=== PATIENT | female | born 1985 | race Caucasian/White ===

== ENCOUNTER 2025-07-15 11:07 | Outpatient (REF) | payer MEDICAID, SELFPAY ==
--- OUTSIDE RECORDS SUMMARY | 2025-07-15 09:40 | XMS_ITS | Encounter Summary ---
Author Organization [employer] Address [address] [facility] [address] [place] [address] Care Team Providers Care Plate Setter Name Role Phone Winnie Sow MD Primary Care Provider +1- [phone] Reason for Referral * Imaging (Routine) - Authorized Specialty Diagnoses / Procedures Referred By Contac t Referred To Contact Radiology Diagnoses Encounter for screening for malignant neoplasm of breast, unspecified screening modality Procedures BI Mammogram Screening Tomosynthesis Bilateral Winnie Sow MD [address] [place] [address] Phone: tel: fax: [facility] Referral ID Status Reason Start Date Expiration Date V isits Requested Visits Authorized [id number] Authorized 07/15/2025 07/15/2026 1 1 Reason for Visit * Reason Comments Abdominal Pain Encounter Details Date Type Department Care Team (Late st Contact Info) Description 07/15/2025 9:40 AM EDT Office Visit [facility] [address] [place] [phone] Winnie Sow MD [address] [place] [phone] Acute vaginitis (Primary Dx); Family planning; [...] 08/15/2025 9:30 AM Winnie Sow MD MEDICINE [facility] documented in this encounter Miscellaneous Notes * Assessment & Plan Note - Winnie Sow MD - 07/15/2025 9:40 AM EDT Associated Problem(s): Other specified health status documented in this encounter Plan of Treatment Upcoming Encounters Date Type Department Care Team (Late st Contact Info) Description 08/15/2025 9:30 AM EDT Office Visit [facility] MED[facility] [address] [place] [phone] Winnie Sow MD [address] [place] [address] Scheduled Orders Name Type Priority Associated Diagnoses Orde r Schedule Urinalysis, Complete, with Reflex to Culture Lab Routine Acute vaginitis Expected: 07/15/2025 (Approximate), Expires: 07/15/2026 Bacterial Vaginosis, Yeast and Trich Microbiology Routine Acute vaginitis Expected: 07/15/2025 (Approximate), Expires: 07/15/2026 Chlamydia/N. Gonorrhoeae RNA, TMA, Vagina Microbiology Routine Acute vaginitis Ordered: 07/15/2025 Hepatitis C Antibody with Reflex to HCV, RNA, Quantitative, Real-Time PCR Lab Routine Routine screening for STI (sexually transmitted infection) Expected: 07/15/2025 (Approximate), Expires: 07/15/2026 HIV-1/2 Antigen and Antibodies, Fourth Generation, with Reflexes Lab Routine Routine screening for STI (sexually transmitted infection) Expected: 07/15/2025 (Approximate), Expires: 07/15/2026 Syphilis Screen Lab Routine Routine screening for STI (sexually transmitted infection) Expected: 07/15/2025 (Approximate), Expires: 07/15/2026 Herpes Simplex Virus 1 and 2 (IgG), Type-Specific Antibodies Lab Routine Acute vaginitis Expected: 07/15/2025 (Approximate), Expires: 07/15/2026 Herpes Simplex Virus Culture with Reflex Typing Microbiology Routine Acute vaginitis Expected: 07/15/2025 (Approximate), Expires: 07/15/2026 Hepatic Function Panel Lab Routine Diabetes mellitus screening Expected: 07/15/2025, Expires: 07/15/2026 Basic Metabolic Panel Lab Routine Diabetes mellitus screening Expected: 07/15/2025, Expires: 07/15/2026 CBC auto differential Lab Routine Screening, anemia, deficiency, iron Expected: 07/15/2025, Expires: 07/15/2026 BI Mammogram Screening Tomosynthesis Bilateral Imaging Routine Encounter for screening for malignant neoplasm of breast, unspecified screening modality Expected: 07/15/2025, Expires: 09/14/2026 documented as of this encounter Procedures Procedure Name Priority Date/Time Associated Diagnosis Comments POCT URINALYSIS DIPSTICK Routine 07/15/2025 10:09 AM EDT Family planning POCT , URINE Routine 07/15/2025 10:05 AM EDT Family planning documented in this encounter Results * (ABNORMAL) POCT urinalysis dipstick manually resulted [...] 113,026 Urine 07/15/2025 10:0 5 AM EDT us Winnie Sow MD POINT OF CARE TEST [...] status documented in this encounter Care Teams Plate Setter Relationship Specialty Start Date End Date Winnie Sow MD [address] [place] [phone] PCP - General Family Medicine 07/15/25 documented as of this encounter
--- OUTSIDE RECORDS SUMMARY | 2025-07-15 12:04 | XMS_ITS | Encounter Summary ---
Author Organization [employer] Address [address] [facility] [address] [place] [address] Care Team Providers Care Magazine Supervisor Name Role Phone Winnie Sow MD Primary Care Provider +1- [phone] Encounter Details Date Type Department Care Team (Latest Contact Info) Description 07/15/2025 Travel Social History Tobacco Use Types Packs/Day Years Used Date Smoking Tobacco: Never Smokeless Tobacco: Never Alcohol Use Standard Drinks/Week Comments Yes 0 (1 standard drink = 0.6 oz pur e alcohol) recreational Comments Unknown Sex and Gender Information Value Date Recorded Sex Assigned at Female 10/30/2024 8:30 AM EST Legal Sex Female 8:29 AM EST Gender Identity Female 10/30/2024 8:30 AM EST Sexual Orientation Straight 10/30/2024 8: 30 AM EST documented as of this encounter Plan of Treatment Upcoming Encounters Date Type Department Care Team (Late st Contact Info) Description 08/15/2025 9:30 AM EDT Office Visit [facility] [address] [place] [address] Winnie Sow MD [address] [place] [address] documented as of this encounter Visit Diagnoses Not on filedocumented in this encounter Care Teams Magazine Supervisor Relationship Specialty Start Date End Date Winnie Sow MD [address] [place] [address] PCP - General Family Medicine 07/15/25 documented as of this encounter
--- OUTSIDE RECORDS SUMMARY | 2025-07-15 12:04 | XMS_ITS | Clinical Summary ---
Author Organization [employer] Address [address] [facility] [address] [place] [address] Care Team Providers Care Chief Wharfinger Name Role Phone Winnie Sow MD Primary Care Provider +1- [phone] Allergies No known active allergies Medications valACYclovir (Valtrex) 1 g tabletIndicati ons:Acute vaginitis Take 1 tablet (1,000 mg) by mouth 2 times daily for 7 days. 14 tablet 07/15/20 25 025 Active fluconazole (Diflucan) 150 MG tabletIndicati ons:Candidiasi s Take 1 tablet (150 mg) by mouth 1 (one) time for 1 dose. 1 tablet 07/15/20 25 025 Active levonorgestrel (Plan B) 1.5 MG tabletIndicati ons:Family planning Take 0.5 tablets (0.75 mg) by mouth every 12 (twelve) hours for 1 day. 1 tablet 07/15/20 25 025 Active levonorgestrel (Plan B) 1.5 MG tabletIndicati ons:Family planning Take 0.5 tablets (0.75 mg) by mouth every 12 (twelve) hours for 1 day. 1 tablet 07/15/20 25 025 Discontinued(Al ternate therapy) fluconazole (Diflucan) 150 MG tabletIndicati ons:Candidiasi s Take 1 tablet (150 mg) by mouth 1 (one) time for 1 dose. 1 tablet 07/15/20 25 025 Discontinued valACYclovir (Valtrex) 1 g tabletIndicati ons:Acute vaginitis Take 1 tablet (1,000 mg) by mouth 2 times daily for 7 days. 14 tablet 07/15/20 25 025 Discontinued Active Problems Problem Noted Date Diagnosed Date Other specified health status 07/15/2025 Overview (07/15/2025): -next comprehensive annual evaluation due after -eye care facilitated by na -dental home is [facility] care proxy Assessment & Plan (07/15/2025 10:56 AM EDT): Encounters Date Type Department Care Team Description 07/15/2025 9:40 AM EDT Office Visit [facility] [address] [place] [address] Winnie Sow MD Acute vaginitis (Primary Dx); Family planning; Routine screening for STI (sexually transmitted infection); Diabetes mellitus screening; Screening, anemia, deficiency, iron; Candidiasis; Encounter for screening for malignant neoplasm of breast, unspecified screening modality; Other specified health status 07/15/2025 Travel 05/05/2025 Telephone [facility] [address] [place] [address] Patrick Torres MD CHW - New Patient Assistance from Last 3 Months Family History Medical History Relation Name Comments Diabetes Maternal Grandfather Heart disease Maternal Grandfather Hypertension Maternal Grandfather Diabetes Mother Cancer Neg Hx Relation Name Status Comments Maternal Grandfather Mother Social History Tobacco Use Types Packs/Day Years [...] Orientation Straight 10/30/2024 8: 30 AM EST Last Filed Vital Signs Vital Sign Reading [...] - - Body Mass Index - - Plan of Treatment Upcoming Encounters Date Type Department Care Team (Late st Contact Info) Description 08/15/2025 9:30 AM EDT Office Visit [facility] [address] [place] [address] Winnie Sow MD [address] [place], [place] [phone] Health Maintenance Due Date Last Done Comments Depression Screening 1984 HIV Screening 1984 SDOH Screening 1984 Disability Screening 1984 Alcohol/Substance Use Screening 1996 Hepatitis C Screening 2002 Pap Smear 2005 Cervical Cancer Screening 2014 HPV/Cotest 2014 DTaP/Tdap/Td Vaccines (8 - Td or Tdap) 01/18/2023 01/18/2013, 11/20/2008, 06/20/1998, Additional history exists COVID-19 Vaccine ( season) 2024 07/13/2021, 06/22/2021 Mammogram 2024 Influenza Vaccine (#1) 2025 , 09/11/2020, 08/25/2020 Family Planning (PISQ) 07/15/2026 07/15/2025 Tobacco Screening 07/15/2026 07/15/2025 Zoster Vaccines (1 of 2) 2034 RSV Patients and Patients Aged 60 years or older (1 - 1-dose 75+ series) 2059 HIB Vaccines Completed 05/21/1987, 10/28/1986 IPV Vaccines Completed 06/04/1990, 0706/1986, 03/11/1985, Additional history exists Hepatitis B Vaccines Completed 12/21/1998, 07/21/1998, 06/20/1998 HPV Vaccines Completed 09/14/2007, 0602/2007, 02/19/2007 Meningococcal Vaccine Aged Out 06/28/2013 No brandon thiago eligible based on patient's age to complete this topic Hepatitis A Vaccines Aged Out No long er eligible based on patient's age to complete this topic Meningococcal B Vaccine Aged Out No l onger eligible based on patient's age to complete this topic Pneumococcal Vaccine: Pediatrics (0 to 5 Years) and At-Risk Patients (6 to 49) Years Aged Out No longer eligible based on patient's age to complete this topic RSV under 20 months Aged Out No longe r eligible based on patient's age to complete this topic Rotavirus Vaccines Aged Out No longer eligible based on patient's age to complete this topic Procedures Procedure Name Priority Date/Time Associated Diagnosis Comments POCT URINALYSIS DIPSTICK Routine 07/15/2025 10:09 AM EDT Family planning POCT , URINE Routine 07/15/2025 10:05 AM EDT Family planning from Last 3 Months Results * (ABNORMAL) POCT urinalysis dipstick manually [...] CARE TEST ENTER/E DIT ORDERABLES Final Result from Last 3 Months Insurance [facility] C3 Care Teams Chief Wharfinger Relationship Specialty Start Date End Date Winnie Sow MD [address] [place] [address] PCP - General Family Medicine 07/15/25
[2025-07-15 13:12] LABS: MANUAL DIFF FLAG NO
[2025-07-15 13:27] LABS: Hematocrit 41.8 % (37.0-47.0); Hemoglobin 14.0 g/dl (12.0-16.0); Imm Gran Abs Auto 0.03 X10*3/uL (0.00-0.03); Imm Gran Pct Auto 0.5 % (0.0-0.4); Lymphocytes Absolute Auto 1.1 X10*3/uL (1.2-4.9); Mean Corpuscular HGB Conc 33.5 g/dl (31.0-35.0); Mean Corpuscular Hemoglobin 30.2 pg (27.0-33.0); Mean Corpuscular Volume 90.3 fL (80.0-98.0); NRBC Abs Auto 0.000 X10*3/uL (0.0-0.012); NRBC Pct Auto 0.0 /100WBC (0.0-0.2); Platelet Count 301 X10*3/uL (160-400); Red Blood Count 4.63 X10*6/uL (4.20-5.50); White Blood Count 6.4 X10*3/uL (4.8-10.8)
[2025-07-15 13:46] LABS: Alanine Aminotransferase 14 U/L (0-31); Albumin Level 4.6 g/dL (3.5-5.0); Alkaline Phosphatase 61 U/L (39-117); Anion Gap 16 (12-20); Aspartate Amino Transferase 23 U/L (5-31); Blood Urea Nitrogen 6 mg/dL (9-16); Calcium 9.3 mg/dL (8.4-10.2); Carbon Dioxide 24 mmol/L (22-29); Chloride 103 mmol/L (96-108); Estimated Glomerular Filt Rate > 60; Potassium 3.7 mmol/L (3.3-5.1); Sodium 139 mmol/L (135-145); Total Protein 8.5 g/dL (6.5-8.0)
[2025-07-15 13:59] LABS: Syphilis Screen Nonreactive (Nonreactive)
[2025-07-15 14:00] LABS: HIV Num 1 0.05 S/CO (0.00-0.99); ~HepC Num1 0.14 S/CO (0.00-0.79); ~Hepatitis C Antibody Nonreactive (Nonreactive)
[2025-07-15 20:53] LABS: Bacterial Vaginosis PCR POSITIVE (Negative); Candida Group PCR NOT DETECTED (Not Detect); Candida glab krusei PCR NOT DETECTED (Not Detect); Trichomonas vaginalis PCR NOT DETECTED (Not Detect)
[2025-07-15 22:26] LABS: CT PCR NOT DETECTED (Not Detect.); NG PCR NOT DETECTED (Not Detect.)
== END 2025-07-15 11:08 | disposition home or self-care (01) ==
LOC: HO.HHCL 11:07
PROVIDERS: PCP Family Medicine; Visit Provider Family Medicine
DX: Z11.3 Encounter for screening for infections with a predominantly sexual mode of transmission (principal); Z13.1 Encounter for screening for diabetes mellitus; Z13.0 Encounter for screening for diseases of the blood and blood-forming organs and certain disorders involving the immune mechanism; Z11.59 Encounter for screening for other viral diseases; Z11.8 Encounter for screening for other infectious and parasitic diseases; Z11.4 Encounter for screening for human immunodeficiency virus [HIV]; N76.0 Acute vaginitis
CPT/HCPCS: 36415; 80048; 80076; 81515; 85025; 86695; 86696; 86780; 86803; 87255; 87389; 87491; 87591

== ENCOUNTER 2025-07-19 14:05 | Outpatient (REF) | payer MEDICAID, SELFPAY ==
--- OUTSIDE RECORDS SUMMARY | 2025-07-15 09:40 | XMS_ITS | Encounter Summary ---
Author Organization [employer] Address [address] [facility] [address], [place] [address] Care Team Providers Care Desk Assistant Name Role Phone Winnie Sow MD Primary Care Provider +1- [phone] Reason for Referral * Imaging (Routine) - Authorized Specialty Diagnoses / Procedures Referred By Contac t Referred To Contact Radiology Diagnoses Encounter for screening for malignant neoplasm of breast, unspecified screening modality Procedures BI Mammogram Screening Tomosynthesis Bilateral Winnie Sow MD [address] [place] [address] Phone: tel: fax: [employer] Referral ID Status Reason Start Date Expiration Date V isits Requested Visits Authorized [id number] Authorized 07/15/2025 07/15/2026 1 1 Reason for Visit * Reason Comments Abdominal Pain Encounter Details Date Type Department Care Team (Late st Contact Info) Description 07/15/2025 9:40 AM EDT Office Visit [facility] [address] [place] [phone] Winnie Sow MD [address] [place] [phone] Acute vaginitis (Primary Dx); Family planning; Routine screening for STI (sexually transmitted infection); Diabetes mellitus screening; Screening, anemia, deficiency, iron; Candidiasis; Encounter for screening for malignant neoplasm of breast, unspecified screening modality; Other specified health status Social History Tobacco Use Types Packs/Day Years Used Date Smoking Tobacco: Never Smokeless Tobacco: Never Tobacco Cessation:Counseling Given: No Alcohol Use Standard Drinks/Week Comments Yes 0 (1 standard drink = 0.6 oz pur e alcohol) recreational Comments Unknown Intention Date Recorded No desire to become (finding) 0 07/15/2025 Sex and Gender Information Value Date Recorded Sex Assigned at Female 10/30/2024 8:30 AM EST Legal Sex Female 8:29 AM EST Gender Identity Female 10/30/2024 8:30 AM EST Sexual Orientation Straight 10/30/2024 8: 30 AM EST documented as of this encounter Last Filed Vital Signs Vital Sign Reading Time Taken Comments Blood Pressure 124/80 07/15/2025 9:21 AM EDT Pulse 98 07/15/2025 9:21 AM EDT Temperature 37.2 C (98.9 F) 07/15/2025 9:21 AM EDT Respiratory Rate 20 07/15/2025 9:21 AM EDT Oxygen Saturation 98% 07/15/2025 9:21 AM EDT Inhaled Oxygen Concentration - - Weight 65 kg (143 lb 3.2 oz) 07/15/2025 9:21 AM EDT Height - - Body Mass Index - - documented in this encounter Progress Notes * Winnie Sow MD - 07/15/2025 9:40 AM EDT Images from the original note were not included. Subjective Patient ID: Elicia Oh is a 39 y.o. female who presents to walk in clinic for vaginal pain. Vaginal pain for three days, worse with urination. No pelvic pain. 1 male partner. + discharge, previous some odor but not currently. Abdominal Pain Review of Systems Gastrointestinal: Positive for abdominal pain. Objective Visit Vitals BP 124/80 (BP Location: Left arm, Patient Position: Sitting, BP Cuff Size: Adult) Pulse 98 Temp 98.9 ??F (37.2 ??C) (Oral) Resp 20 There is no height or weight on file to calculate BMI. Physical Exam Genitourinary: Comments: Mild erythema, pin point area of erythema that is tender with application of swab at pt'sright lower introitus. Assessment & Plan Acute vaginitis Suspect candidiasis. Rx diflucan. Will treat presumptively for HSV given localized area of tenderness to be cautious. Orders: Urinalysis, Complete, with Reflex to Culture; Future Bacterial Vaginosis, Yeast and Trich; Future Chlamydia/N. Gonorrhoeae RNA, TMA, Vagina Herpes Simplex Virus 1 and 2 (IgG), Type-Specific Antibodies; Future Herpes Simplex Virus Culture with Reflex Typing; Future valACYclovir (Valtrex) 1 g tablet; Take 1 tablet (1,000 mg) by mouth 2 times daily for 7 days. Family planning Orders: POCT urinalysis dipstick manually resulted POCT , urine manually resulted levonorgestrel (Plan B) 1.5 MG tablet; Take 0.5 tablets (0.75 mg) by mouth every 12 (twelve) hours for 1 day. Routine screening for STI (sexually transmitted infection) Orders: Hepatitis C Antibody with Reflex to HCV, RNA, Quantitative, Real-Time PCR; Future HIV-1/2 Antigen and Antibodies, Fourth Generation, with Reflexes; Future Syphilis Screen; Future Diabetes mellitus screening Orders: Hepatic Function Panel; Future Basic Metabolic Panel; Future Screening, anemia, deficiency, iron Orders: CBC auto differential; Future Candidiasis Orders: fluconazole (Diflucan) 150 MG tablet; Take 1 tablet (150 mg) by mouth 1 (one) time for 1 dose. Encounter for screening for malignant neoplasm of breast, unspecified screening modality Orders: BI Mammogram Screening Tomosynthesis Bilateral; Future Other specified health status Future Appointments Date Time Provider Department Center 08/15/2025 9:30 AM Winnie Sow MD MEDICINE [facility] documented in this encounter Miscellaneous Notes * Assessment & Plan Note - Winnie Sow MD - 07/15/2025 9:40 AM EDT Associated Problem(s): Other specified health status * Addendum Note - Winnie Sow MD - 07/15/2025 9:40 AM EDTAddended by: WINNIE SOW on: 07/15/2025 06:08 PM Modules accepted: Orders documented in this encounter Plan of Treatment Upcoming Encounters Date Type Department Care Team (Late st Contact Info) Description 08/15/2025 9:30 AM EDT Office Visit [facility] [address] [place] [address] Winnie Sow MD [address] [place] [address] Scheduled Orders Name Type Priority Associated Diagnoses Orde r Schedule Urinalysis, Complete, with Reflex to Culture Lab Routine Acute vaginitis Expected: 07/15/2025 (Approximate), Expires: 07/15/2026 Bacterial Vaginosis, Yeast and Trich Microbiology Routine Acute vaginitis Expected: 07/15/2025 (Approximate), Expires: 07/15/2026 Herpes Simplex Virus Culture with Reflex Typing Microbiology Routine Acute vaginitis Expected: 07/15/2025 (Approximate), Expires: 07/15/2026 BI Mammogram Screening Tomosynthesis Bilateral Imaging Routine Encounter for screening for malignant neoplasm of breast, unspecified screening modality Expected: 07/15/2025, Expires: 09/14/2026 documented as of this encounter Procedures Procedure Name Priority Date/Time Associated Diagnosis Comments SYPHILIS SCREEN Routine 07/15/2025 11:13 AM EDT Routine screening for STI (sexually transmitted infection) CBC WITH AUTO DIFFERENTIAL Routine 07/15/2025 11:13 AM EDT Screening, anemia, deficiency, iron HEPATITIS C AB W/REFL TO HCV RNA, QN, PCR Routine 07/15/2025 11:13 AM EDT Routine screening for STI (sexually transmitted infection) HIV 1/2 ANTIGEN/ANTIBODY, FOURTH GENERATION W/RFL Routine 07/15/2025 11:13 AM EDT Routine screening for STI (sexually transmitted infection) HEPATIC FUNCTION PANEL Routine 07/15/2025 11:13 AM EDT Diabetes mellitus screening BASIC METABOLIC PANEL Routine 07/15/2025 11:13 AM EDT Diabetes mellitus screening CHLAMYDIA/N. GONORRHOEAE RNA, TMA, UROGENITAL Routine 07/15/2025 10:40 AM EDT Acute vaginitis POCT URINALYSIS DIPSTICK Routine 07/15/2025 10:09 AM EDT Family planning POCT , URINE Routine 07/15/2025 10:05 AM EDT Family planning documented in this encounter Results * (ABNORMAL) CBC auto differential (07/15/2025 11:13 AM EDT) White Blood Count 6.4 4.8 - 10.8 X10*3/uL [facility] Red Blood Count 4.63 4.20 - 5.50 X10*6/uL [facility] Hemoglobin 14.0 12.0 - 16.0 g/dl [facility] Hematocrit 41.8 37.0 - 47.0 % [facility] Mean Corpuscular Volume 90.3 80.0 - 98.0 fL [facility] Mean Corpuscular Hemoglobin 30.2 27.0 - 33.0 pg [facility] Mean Corpuscular HGB Conc 33.5 31.0 - 35.0 g/dl [facility] Red Cell Distribution Width 12.8 11.0 - 16.0 % [facility] Platelet Count 301 160 - 400 X10*3/uL [facility] Mean Platelet Volume 10.5 9.4 - 12.3 fL [facility] Neutrophils Percent Auto 72.5 45 - 73 % [facility] Imm Gran Pct Auto 0.5(H) 0.0 - 0.4 % [facility] Lymphocytes Percent Auto 16.3(L) 20 - 40 % [facility] Monocytes Percent Auto 9.0 2 - 11 % [facility] Eosinophils Percent Auto 1.1 0 - 4 % [facility] Basophils Percent Auto 0.6 0 - 2 % [facility] NRBC Pct Auto 0.0 0.0 - 0.2 /100WBC [facility] Neutrophils Absolute Auto 4.7 2.0 - 8.3 x10*3/uL [facility] Imm Gran Abs Auto 0.03 0.00 - 0.03 X10*3/uL [facility] Lymphocytes Absolute Auto 1.1(L) 1.2 - 4.9 X10*3/uL [facility] Monocytes Absolute Auto 0.6 0.1 - 1.2 X10*3/uL [facility] Eosinophils Absolute Auto 0.1 0.0 - 0.4 X10*3/uL [facility] Basophils Absolute Auto 0.0 0.0 - 0.2 X10*3/uL [facility] NRBC Abs Auto 0.000 0.0 - 0.012 X10*3/uL [facility] Blood Venous blood specimen / Unknown 07/15/2025 11:13 AM EDT 07/15/2025 1:08 PM EDT us Winnie Sow MD LAB BLOOD ORDERABLES Final Result [facility] [address] [place] [phone] * (ABNORMAL) Basic Metabolic Panel (07/15/2025 11:13 AM EDT) Sodium 139 135 - 145 mmol/L [facility] Potassium 3.7 3.3 - 5.1 mmol/L [facility] Chloride 103 96 - 108 mmol/L [facility] Carbon Dioxide 24 22 - 29 mmol/L [facility] Anion Gap 16 12 - 20 [facility] Urea Nitrogen (BUN) 6(L) 9 - 16 mg/dL [facility] Creatinine, Serum 0.72 0.5 - 1.4 mg/dL [facility] Estimated Glomerular Filt Rate >60 [facility] Comment:Chronic Kidney Disea se: Estimated GFR < 60 mL/min/1.91g4Nfnllh Kidney Disease: Estimated GFR < 15 mL/min/1.73m2 Glucose 102 60 - 115 mg/dL [facility] Calcium 9.3 8.4 - 10.2 mg/dL [facility] Blood Venous blood specimen / Unknown 07/15/2025 11:13 AM EDT 07/15/2025 1:08 PM EDT Winnie Sow MD LAB BLOOD ORDERABLES Final Result Performing Organization Address City/[facility] Co de Phone Number [facility] [address] [place] [phone] * (ABNORMAL) Hepatic Function Panel (07/15/2025 11:13 AM EDT) Bilirubin, Total 0.4 0.0 - 1.0 mg/dL [facility] Bilirubin, Direct 0.2 0.0 - 0.5 mg/dL [facility] Aspartate Amino Transferase 23 5 - 31 U/L [facility] Alanine Aminotransferase 14 0 - 31 U/L [facility] Total Protein 8.5(H) 6.5 - 8.0 g/dL [facility] Albumin Level 4.6 3.5 - 5.0 g/dL [facility] Alkaline Phosphatase 61 39 - 117 U/L [facility] Blood Venous blood specimen / Unknown 07/15/2025 11:13 AM EDT 07/15/2025 1:08 PM EDT Winnie Sow MD LAB BLOOD ORDERABLES Final Result Performing Organization Address City/[facility]/ZIP Co de Phone Number [facility] [address] [place] [phone] * Syphilis Screen (07/15/2025 11:13 AM EDT) Syphilis Screen Nonreactive Nonreactive [facility] Blood Venous blood specimen / Unknown 07/15/2025 11:13 AM EDT 07/15/2025 1:08 PM EDT Winnie Sow MD LAB BLOOD ORDERABLES Final Result Performing Organization Address [facility] Co de Phone Number [facility] [address] [place] [phone] * HIV-1/2 Antigen and Antibodies, Fourth Generation, with Reflexes (07/15/2025 11:13 AM EDT) HIV AB/AG Nonreactive Nonreactive [facility] Comment:HIV-1 p24 Ag and/or HIV-1/HIV-2 Ab not detected.A test result that is nonreactive does not exclude thepossibility of exposure to or infection with HIV-1 and/orHIV-2. Nonreactive results in this assay for individualswith prior exposure to HIV-1 and/or HIV-2 may be due toantigen and antibody levels that are below the limit ofdetection of this assay.The [employer] CRMnimValent HIV Ag/Ab Combo assay result andsupplemental assay results should be interpreted inconjunction with the patient's clinical presentation,history and other laboratory results. If the results areinconsistent with clinical evidence, additional testing issuggested to confirm the result. Blood Venous blood specimen / Unknown 07/15/2025 11:13 AM EDT 07/15/2025 1:08 PM EDT Winnie Sow MD LAB BLOOD ORDERABLES Final Result Performing Organization Address [facility] Co de Phone Number [facility] [address] [place] [phone] * Hepatitis C Antibody with Reflex to HCV, RNA, Quantitative, Real-Time PCR (07/15/2025 11:13 AM EDT) Hepatitis C Antibody Nonreactive Nonreactive [facility] Comment:Antibodies to HCV no t detected; does not exclude early acuteHCV infection. Blood Venous blood specimen / Unknown 07/15/2025 11:13 AM EDT 07/15/2025 1:08 PM EDT Winnie Sow MD LAB BLOOD ORDERABLES Final Result [facility] [address] [place] [phone] * Chlamydia/N. Gonorrhoeae RNA, TMA, Vagina (07/15/2025 10:40 AM EDT) CT PCR NOT DETECTED Not Detect. [facility] Comment:A not detected test result does not exclude the possibilityof infection because test results can be affected byimproper specimen collection, concurrent antibiotic therapy,or the number of organisms in the specimen which may bebelow the sensitivity of the test. As with many diagnostictests, results from the Xpert CT/NG assay should beinterpreted in conjunction with other laboratory andclinical data available to the clinician.Xpert CT/NG performance has not been evaluated in patientsless than 14 years of age. The assay should not be used forthe evaluationof suspected sexual abuse or for other medico-legalindications. Additional testing is recommended in anycircumstance when false positive or false negative resultscould lead to adverse medical, social or psychologicalconsequences. NG PCR NOT DETECTED Not Detect. [facility] Comment:A not detected test result does not exclude the possibilityof infection because test results can be affected byimproper specimen collection, concurrent antibiotic therapy,or the number of organisms in the specimen which may bebelow the sensitivity of the test. As with many diagnostictests, results from the Xpert CT/NG assay should beinterpreted in conjunction with other laboratory andclinical data available to the clinician.Xpert CT/NG performance has not been evaluated in patientsless than 14 years of age. The assay should not be used forthe evaluationof suspected sexual abuse or for other medico-legalindications. Additional testing is recommended in anycircumstance when false positive or false negative resultscould lead to adverse medical, social or psychologicalconsequences. Swab Vaginal structure / Unknown 07/15/2025 10:40 AM EDT 07/15/2025 4:40 PM EDT Winnie Sow MD LAB MICROBIOLOGY - GENERAL ORDERABLES Final Result [facility] [address] [place] [phone] * (ABNORMAL) POCT urinalysis dipstick manually resulted (07/15/2025 10:09 AM EDT) Color, UA Yellow Clarity, UA Turbid Glucose, UA Negative Bilirubin, UA Comment:small Ketones, UA Positive Spec Grav, UA 1.025 Blood, UA Positive(A) Negative, None Detected pH, UA 6.5 Protein, UA Comment:300 Urobilinogen, UA 1.0 Leukocytes, UA Comment:small Nitrite, UA Negative Negative, None Detected Appearance, UA yellow QC Media Lot # [id number] Lot# Expiration Date 63,026 Urine 07/15/2025 10:0 9 AM EDT Winnie Sow MD POINT OF CARE TEST ENTER/E DIT ORDERABLES Final Result * POCT , urine manually resulted (07/15/2025 10:05 AM EDT) Preg Test, Ur Negative Negative, Indeterminate, None Detected, Invalid, Specimen unsatisfactory for evaluation, Weakly Positive, 2+ QC Media Lot # [id number] Lot# Expiration Date 113,026 Urine 07/15/2025 10:0 5 AM EDT Winnie Sow MD POINT OF CARE TEST ENTER/E DIT ORDERABLES Final Result documented in this encounter Visit Diagnoses Diagnosis Acute vaginitis- Primary Unspecified vaginitis and vulvovaginitis Encounter for screening for malignant neoplasm of breast, unspecified screening modality Routine screening for STI (sexually transmitted infection) Screening examination for venereal disease Diabetes mellitus screening Screening for diabetes mellitus Screening, anemia, deficiency, iron Screening for iron deficiency anemia Candidiasis Other specified health status documented in this encounter Care Teams Desk Assistant Relationship Specialty Start Date End Date Winnie Sow MD [address] [place] [phone] PCP - General Family Medicine 07/15/25 documented as of this encounter
--- OUTSIDE RECORDS SUMMARY | 2025-07-19 09:00 | XMS_ITS | Encounter Summary ---
Author Organization [employer] Address 75 [facility] [address] [place] [address] Care Team Providers Care Brand Marketing Manager Name Role Phone Winnie Sow MD Primary Care Provider [phone]- [phone] Reason for Visit * Reason Comments Walk-In Vaginal discomfort, pt was put on medication but had to stop it due to having a side effect. Pt is still having discharge and the burning sensation when urinating Encounter Details Date Type Department Care Team (Late st Contact Info) Description 07/19/2025 9:00 AM EDT Office Visit [facility] [address], [place] [phone] Juliocesar Barrientos MD [address] [place], [place] [phone] Bacterial vaginosis Social History Tobacco Use Types Packs/Day Years Used Date Smoking Tobacco: Never Passive Smoke Exposure: Never Smokeless Tobacco: Never Tobacco Cessation:Counseling Given: Not Answered Alcohol Use Standard Drinks/Week Comments Yes 0 [...] Sign Reading Time Taken Comments Blood Pressure 140/93 07/19/2025 8:56 AM EDT no chest pain, palpitations, or SOB Pulse 96 07/19/2025 8:56 AM EDT Temperature 36.4 C (97.6 F) 07/19/2025 8:56 AM EDT Respiratory Rate 20 07/19/2025 8:56 AM EDT Oxygen Saturation 100% 07/19/2025 8:5 6 AM EDT Inhaled Oxygen Concentration - - Weight 65 kg (143 lb 3.2 oz) 07/19/2025 8:56 AM EDT Height 154.9 cm (5' 1 ) 07/19/2025 8:56 AM EDT Body Mass Index 27.06 07/19/2025 8:56 AM EDT documented in this encounter Progress Notes * Juliocesar Barrientos MD - 07/19/2025 9:00 AM EDT Subjective History was provided by the patient. Elicia Oh is a 39 y.o. female who presents for evaluation of vaginal itching/pain for 1 week. Was evaluated on 07/15/2025. Was treated with Valacyclovir for presumptive HSV (due to erythematous rash on vaginal introitus). Her HSV Ab came back negative, but HSV Culture is still pending. Patient contacted the clinic due to adverse effects of body stiffness while on Valacyclovir. She was advised to discontinue (off for >36 hours) and now feeling better. Her vaginal swab came back positive for BV. Rx for Metronidazole PO was sent, but has not started yet. She reported minimal dysuria. POC UA showed microscopic hematuria. Urine Culture was ordered by the previous provider (not enough volume at the visit), but has not completed yet. Her urine test was negative on 07/15/2025. Objective Vitals: 07/19/25 0856 BP: (!) 140/93 BP Location: Left arm Patient Position: Sitting BP Cuff Size: Adult Pulse: 96 Resp: 20 Temp: 97.6 ??F (36.4 ??C) TempSrc: Temporal SpO2: 100% Weight: 143 lb 3.2 oz (65 kg) Height: 5' 1 (1.549 m) Physical Exam Constitutional: General: She is not in acute distress. Appearance: Normal appearance. She is not ill-appearing, toxic-appearing or diaphoretic. HENT: Head: Normocephalic and atraumatic. Right Ear: External ear normal. Left Ear: External ear normal. Mouth/Throat: Mouth: Mucous membranes are moist. Pharynx: Oropharynx is clear. Eyes: Extraocular Movements: Extraocular movements intact. Conjunctiva/sclera: Conjunctivae normal. Cardiovascular: Rate and Rhythm: Normal rate and regular rhythm. Heart sounds: Normal heart sounds. Pulmonary: Effort: Pulmonary effort is normal. No respiratory distress. Breath sounds: Normal breath sounds. No wheezing, rhonchi or rales. Chest: Chest wall: No tenderness. Abdominal: General: Abdomen is flat. There is no distension. Palpations: Abdomen is soft. Tenderness: There is no abdominal tenderness. There is no right CVA tenderness, left CVA tenderness, guarding or rebound. Musculoskeletal: General: Normal range of motion. Lymphadenopathy: Cervical: No cervical adenopathy. Skin: General: Skin is warm and dry. Neurological: General: No focal deficit present. Mental Status: She is alert and oriented to person, place, and time. Psychiatric: Mood and Affect: Mood normal. Behavior: Behavior normal. Office Visit on 07/19/2025 Component Date Value Ref Range Status Color, UA 07/19/2025 Yellow Final Clarity, UA 07/19/2025 Cloudy Final Glucose, UA 07/19/2025 Negative Final Bilirubin, UA 07/19/2025 Trace Final Small Ketones, UA 07/19/2025 Negative Final Spec Grav, UA 07/19/2025 1.025 Final Blood, UA 07/19/2025 Positive (A) Negative, None Detected Final Large pH, UA 07/19/2025 6.5 Final Protein, UA 07/19/2025 Trace Final 30mg/dL Urobilinogen, UA 07/19/2025 1.0 Final Leukocytes, UA 07/19/2025 Negative Negative, Rare, Trace Final Nitrite, UA 07/19/2025 Negative Negative, None Detected Final Appearance, UA 07/19/2025 yellow Final QC Media Lot # 07/19/2025 [id number] Final Lot# Expiration Date 07/19/2025 [id number] Final Elicia was seen today for walk-in. Diagnoses and all orders for this visit: Bacterial vaginosis - POCT Urinalysis - Culture, Urine, Routine; Future Patient presents to [facility] with vaginal pain No clinical evidence of acute abdomen Vaginal swab positive for BV Trich and Dana negative Encouraged to start Metronidazole PO Patient preferred oral regimen over vaginal suppository Potential adverse effects of the medication reviewed Normal pulmonary exam and no respiratory distress POC UA again positive for microscopic hematuria Negative leukocytes/nitrites Adequate urine sample collected for Urine Culture Also follow up with HSV Culture result Advised to contact the clinic if no improvement of symptoms Indications for UC/ER use reviewed documented in this encounter Plan of Treatment Upcoming Encounters Date Type Department Care Team (Late st Contact Info) Description 08/15/2025 9:30 AM EDT Office Visit [facility] [address] [place] [address] Winnie Sow MD [address] [place] [address] Scheduled Orders Name Type Priority Associated Diagnoses Orde r Schedule Culture, Urine, Routine Microbiology Routine Bacterial vaginosis Expected: 07/19/2025 (Approximate), Expires: 07/19/2026 documented as of this encounter Procedures Procedure Name Priority Date/Time Associated Diagnosis Comments POCT URINALYSIS DIPSTICK Routine 07/19/2025 9:26 AM EDT Bacterial vaginosis documented in this encounter Results * (ABNORMAL) POCT Urinalysis (07/19/2025 9:26 AM EDT) Color, UA Yellow Clarity, UA Cloudy Glucose, UA Negative Bilirubin, UA Trace Comment:Small Ketones, UA Negative Spec Grav, UA 1.025 Blood, UA Positive(A) Negative, None Detected Comment:Large pH, UA 6.5 Protein, UA Trace Comment:30mg/dL Urobilinogen, UA 1.0 Leukocytes, UA Negative Negative, Rare, Trace Nitrite, UA Negative Negative, None Detected Appearance, UA yellow QC Media Lot # [id number] Lot# Expiration Date [id number] Urine 07/19/2025 9:26 AM EDT Juliocesar Barrientos MD POINT OF CARE TEST ENTER/EDIT OR DERABLES Final Result documented in this encounter Visit Diagnoses Diagnosis Bacterial vaginosis Unspecified vaginitis and vulvovaginitis documented in this encounter Care Teams Brand Marketing Manager Relationship Specialty Start Date End Date Winnie oSw MD [address] [place] [phone] PCP - General Family Medicine 07/15/25 documented as of this encounter
--- OUTSIDE RECORDS SUMMARY | 2025-07-19 14:07 | XMS_ITS | Encounter Summary ---
Author Organization [employer] Address [address] [place] [address] [address] [address] Care Team Providers Care Field Crop Grower Name Role Phone Winnie Sow MD Primary Care Provider +1- [phone] Encounter Details Date Type Department Care Team (Late Contact Info) Description 07/16/2025 Results Follow-Up [facility] [address] [place] [address] [phone] Winnie Sow MD [address] [place] [address] [phone] Bacterial Vaginosis Social History Tobacco Use Types Packs/Day Years [...] Description 08/15/2025 9:30 AM EDT Office Visit [facility] [address] [place] [address] [phone] Winnie Sow MD [address] [place] [address] [phone] documented as of this encounter Visit Diagnoses Not on filedocumented in this encounter Care Teams Field Crop Grower Relationship Specialty Start Date End Date Winnie Sow MD [address] [place] [phone] PCP - General Family Medicine 07/15/25 documented as of this encounter
--- OUTSIDE RECORDS SUMMARY | 2025-07-19 14:07 | XMS_ITS | Encounter Summary ---
Author Organization [employer] Address [address] [place] [address] [address] [place] [address] Care Team Providers Care Bioinformatics Team Member Name Role Phone Winnie Sow MD Primary Care Provider +1- [phone] Encounter Details Date Type Department Care Team (Late Contact Info) Description 07/15/[address] [facility] [address] [place] [address] [phone] Winnie Sow MD [address] [place] [address] [phone] Social History Tobacco Use Types Packs/Day Years [...] Description 08/15/2025 9:30 AM EDT Office Visit [facility] [address] [place] [address] [phone] Winnie Sow MD [address] [place] [address] [phone] documented as of this encounter Procedures Procedure Name Priority Date/Time Associated Diagnosis Comments HSV 1/2 IGG,TYPE SPECIFIC AB Routine 07/15/2025 11:13 AM EDT BACTERIAL VAGINOSIS PANEL Routine 07/15/2025 10:40 AM EDT documented in this encounter Results * Herpes Simplex Virus 1 and 2 (IgG), Type-Specific Antibodies (07/15/2025 11:13 AM EDT) Herpes Simplex Type 1 IgG <0.90 index [facility] Herpes Simplex Type 2 IgG <0.90 index [facility] Comment:Index Interpretation ----- <0.90 Negative 0.90-1.09 Equivocal >1.09 PositiveThis assay utilizes recombinant type-specific antigensto differentiate HSV-1 from HSV-2 infections. Apositive result cannot distinguish between recent andpast infection. If recent HSV infection is suspectedbut the results are negative or equivocal, the assayshould be repeated in 4-6 weeks. The performancecharacteristics of the assay have not been establishedfor pediatric populations, immunocompromised patients,or screening.For additional information, please refer tohttp://education.[employer]/faq/UEG615(This link is being provided for informational/educational purposes only.)THIS TEST WAS PERFORMED AT:[facility] [place] [phone] [id number] EAST MD 07/15/2025 11:1 3 AM EDT 07/15/2025 1:08 PM EDT Winnie Sow MD LAB BLOOD ORDERABLES Final Result [facility] [address] [place] [phone] [phone] * (ABNORMAL) Bacterial Vaginosis (07/15/2025 10:40 AM EDT) TRICHOMONAS VAGINALIS DETECTION BY PCR NOT DETECTED Not Detect [facility] BACTERIAL VAGINOSIS DETECTION BY PCR POSITIVE(A) Negative [facility] Comment:The BV organism targ ets of the Xpert Xpress MVP test can becommensal in women; Xpert Xpress MVP positive results forbacterial vaginosis should be considered in conjunction withother clinical and patient information to determine thedisease status. Organisms that are not detected by the XpertXpress MVP test have also been reported to be associatedwith BV and aerobic vaginitis.The Xpert Xpress MVP test performance has not been evaluatedin patients under the age of 14. DANA GROUP DETECTION BY PCR NOT DETECTED Not Detect [facility] Dana glab krusei PCR NOT DETECTED Not Detect [facility] 07/15/2025 10:4 0 AM EDT 07/15/2025 6:13 PM EDT Winnie Sow MD LAB MICROBIOLOGY - GENERAL ORDERABLES Final Result [facility] [address] [place] [phone] [phone] documented in this encounter Visit Diagnoses Not on filedocumented in this encounter Care Teams Bioinformatics Team Member Relationship Specialty Start Date End Date Winnie oSw MD [address] [place] [phone] PCP - General Family Medicine 07/15/25 documented as of this encounter
--- OUTSIDE RECORDS SUMMARY | 2025-07-19 14:08 | XMS_ITS | Encounter Summary ---
Author Organization [employer] Address [address] [facility] [address] [place] [address] Care Team Providers Care Associate Professor Of Theology Name Role Phone Winnie Sow MD Primary Care Provider +1- [phone] Reason for Visit * Reason Onset Date Comments Results 07/18/2025 Encounter Details Date Type Department Care Team ([facility] st Contact Info) Description 07/18/2025 Refill [facility] [address] [place], [place] [phone] Elicia Samayoa DO [address] [place], [place] [phone] Social History Tobacco Use Types Packs/Day Years [...] AM EST documented as of this encounter Miscellaneous Notes * Telephone Encounter - Rebecca Jasso RN - 07/18/2025 12:53 PM EDT TC placed to pt to check if she was going to come back to walk in [place] today to be seen. Pt states that she needs to be at her children school at 3 pm. Pt reporting that she was put on Valtrex and after taking medication has terrible joint pain and doesn't feel well on the medication, pt did not take meds today and states feels normal. Spoke to Dr Barrientos advised pt to stop taking Valtrex as negative HSV 1/2 antibodies however culture still waiting if that is positive can readdress medication as sounds like pt having adverse reaction to med. Pt tested + for BV spoke to Dr Samayoa who will send medication. Pt still requesting to be evaluated and put on schedule for tomorrow. documented in this encounter Plan of Treatment Upcoming Encounters Date Type Department Care Team (Late st Contact Info) Description 08/15/2025 9:30 AM EDT Office Visit [facility] [address] [place] [phone] Winnie Sow MD [address] [place] [phone] documented as of this encounter Visit Diagnoses Not on filedocumented in this encounter Care Teams Associate Professor Of Theology Relationship Specialty Start Date End Date Winnie Sow MD [address] [place] [address] [phone] PCP - General Family Medicine 07/15/25 documented as of this encounter
--- OUTSIDE RECORDS SUMMARY | 2025-07-19 14:08 | XMS_ITS | Clinical Summary ---
Author Organization [employer] Address [address] [place] [address] [address] [place] [address] Care Team Providers Care Instructional Developer Name Role Phone Winnie Sow MD Primary Care Provider +1- [phone] Allergies No known active allergies Medications valACYclovir (Valtrex) 1 g tabletIndicati ons:Acute vaginitis Take 1 tablet (1,000 mg) by mouth 2 times daily for 7 days. 14 tablet 07/15/20 25 025 Active metroNIDAZOLE (Flagyl) 500 MG tablet Take 1 tablet (500 mg) by mouth 2 times daily for 7 days. 14 tablet 07/18/2025 3:38 PM EDT 07/18/20 25 025 Active levonorgestrel (Plan B) 1.5 [...] days. 14 tablet 07/15/20 25 025 Discontinued fluconazole (Diflucan) 150 MG tabletIndicati ons:Candidiasi s Take 1 tablet (150 mg) by mouth 1 (one) time for 1 dose. 1 tablet 07/15/20 25 025 levonorgestrel (Plan B) 1.5 MG tabletIndicati ons:Family planning Take 0.5 tablets (0.75 mg) by mouth every 12 (twelve) hours for 1 day. 1 tablet 07/15/20 25 025 metroNIDAZOLE (Flagyl) 500 MG tablet Take 500 mg by mouth 2 times daily. 07/18/20 25 025 Discontinued(Re order (will not trigger notification to Pharmacy)) Active Problems Problem Noted Date Diagnosed Date Other specified health status 07/15/2025 Overview (07/15/2025): -next comprehensive annual evaluation due after -eye care facilitated by -d[facility] care proxy Assessment & Plan (07/15/2025 10:56 AM EDT): Encounters Date Type Department Care Team Description 07/19/2025 9:00 AM EDT Office Visit [facility] [address] [place] [phone] Juliocesar Barrientos MD Bacterial vaginosis 07/19/2025 Travel 07/18/2025 Refill [facility] [address] [place] [phone] Elicia Samayoa DO 07/18/2025 Travel 07/16/2025 Results Follow-Up [facility] [address] [place] [phone] Winnie Sow MD Bacterial Vaginosis 07/15/2025 9:40 AM EDT Office Visit [facility] [address] [place] [phone] Winnie Sow MD Acute vaginitis (Primary Dx); Family planning; Routine screening for STI (sexually transmitted infection); Diabetes mellitus screening; Screening, anemia, deficiency, iron; Candidiasis; Encounter for screening for malignant neoplasm of breast, unspecified screening modality; Other specified health status 07/15/2025 Orders Only [facility] [address] [place] [phone] Winnie Sow MD 07/15/2025 Travel 05/05/2025 Telephone [facility] [address] [place] [phone] Patrick Torres MD CHW - New Patient [...] Mass Index 27.06 07/19/2025 8:56 AM EDT Plan of Treatment Upcoming Encounters Date Type Department Care Team (Late st Contact Info) Description 08/15/2025 9:30 AM EDT Office Visit [facility] [address] [place] [phone] Winnie Sow MD [address] [place] [phone] Health Maintenance Due Date Last Done Comments Depression Screening 1984 SDOH Screening 1984 Alcohol/Substance Use Screening 1996 Pap Smear 2005 Cervical Cancer Screening 2014 HPV/Cotest 2014 DTaP/Tdap/Td Vaccines (8 - Td or Tdap) 01/18/2023 01/18/2013, 11/20/2008, 06/20/1998, Additional history exists COVID-19 Vaccine ( season) 2024 07/13/2021, 06/22/2021 Mammogram 2024 Influenza Vaccine (#1) 2025 , 09/11/2020, 08/25/2020 Family Planning (PISQ) 07/15/2026 07/15/2025 Disability Screening 07/18/2026 07/18/2025 Tobacco Screening 07/19/2026 07/19/2025 Zoster Vaccines (1 of 2) 2034 RSV Patients and Patients Aged 60 years or older (1 - 1-dose 75+ series) 2059 HIB Vaccines Completed 05/21/1987, 10/28/1986 IPV Vaccines Completed 06/04/1990, 06/1986, 03/11/1985, Additional history exists Hepatitis B Vaccines Completed 12/21/1998, 07/21/1998, 06/20/1998 HPV Vaccines Completed 09/14/2007, 02/2007, 02/19/2007 Meningococcal Vaccine Aged Out 06/28/2013 No brandon thiago eligible based on patient's age to complete this topic HIV Screening Completed 07/15/2025 Hepatitis C Screening Completed 07/15/2025 Hepatitis A Vaccines Aged Out No long [...] Routine 07/19/2025 9:26 AM EDT Bacterial vaginosis HSV 1/2 IGG,TYPE SPECIFIC AB Routine 07/15/2025 11:13 AM EDT CBC WITH AUTO DIFFERENTIAL Routine 07/15/2025 11:13 AM EDT Screening, anemia, deficiency, iron BASIC METABOLIC PANEL Routine 07/15/2025 11:13 AM EDT Diabetes mellitus screening HEPATIC FUNCTION PANEL Routine 07/15/2025 11:13 AM EDT Diabetes mellitus screening SYPHILIS SCREEN Routine 07/15/2025 11:13 AM EDT Routine screening for STI (sexually transmitted infection) HIV 1/2 ANTIGEN/ANTIBODY, FOURTH GENERATION W/RFL Routine 07/15/2025 11:13 AM EDT Routine screening for STI (sexually transmitted infection) HEPATITIS C AB W/REFL TO HCV RNA, QN, PCR Routine 07/15/2025 11:13 AM EDT Routine screening for STI (sexually transmitted infection) BACTERIAL VAGINOSIS PANEL Routine 07/15/2025 10:40 AM EDT CHLAMYDIA/N. GONORRHOEAE RNA, TMA, UROGENITAL Routine 07/15/2025 10:40 AM EDT Acute vaginitis POCT URINALYSIS DIPSTICK Routine 07/15/2025 10:09 AM EDT Family planning POCT , URINE Routine 07/15/2025 10:05 AM EDT Family planning from Last 3 Months Results * (ABNORMAL) POCT Urinalysis (07/19/2025 9:26 AM EDT) Only the most recent of2 resultswithin the time period is included. Color, UA Yellow Clarity, UA Cloudy Glucose, UA Negative Bilirubin, UA Trace Comment:Small Ketones, UA Negative Spec Grav, UA 1.025 Blood, UA Positive(A) Negative, None Detected Comment:Large pH, UA 6.5 Protein, UA Trace Comment:30mg/dL Urobilinogen, UA 1.0 Leukocytes, UA Negative Negative, Rare, Trace Nitrite, UA Negative Negative, None Detected Appearance, UA yellow QC Media Lot # [id number] Lot# Expiration Date [id number] Urine 07/19/2025 9:26 AM EDT Juliocesar Barrientos MD POINT OF CARE TEST ENTER/EDIT OR DERABLES Final Result * Syphilis Screen (07/15/2025 11:13 AM EDT) Pathologist [facility] Syphilis Screen Nonreactive Nonreactive [facility] Blood Venous blood specimen / Unknown 07/15/2025 11:13 AM EDT 07/15/2025 1:08 PM EDT Winnie Sow MD LAB BLOOD ORDERABLES Final Result [facility] [address] [place] [phone] * (ABNORMAL) CBC auto differential (07/15/2025 11:13 AM EDT) Pathologist [facility] White Blood Count 6.4 4.8 - 10.8 X10*3/uL [facility] Red Blood Count 4.63 4.20 - 5.50 X10*6/uL [facility] Hemoglobin 14.0 12.0 - 16.0 g/dl [facility] Hematocrit 41.8 37.0 - 47.0 % [facility] Mean Corpuscular Volume 90.3 80.0 - 98.0 fL [facility] Mean Corpuscular Hemoglobin 30.2 27.0 - 33.0 pg [facility] Mean Corpuscular HGB Conc 33.5 31.0 - 35.0 g/dl [facility] Red Cell Distribution Width 12.8 11.0 - 16.0 % [facility] Platelet Count 301 160 - 400 X10*3/uL [facility] Mean Platelet Volume 10.5 9.4 - 12.3 fL [facility] Neutrophils Percent Auto 72.5 45 - 73 % [facility] Imm Gran Pct Auto 0.5(H) 0.0 - 0.4 % [facility] Lymphocytes Percent Auto 16.3(L) 20 - 40 % [facility] Monocytes Percent Auto 9.0 2 - 11 % [facility] Eosinophils Percent Auto 1.1 0 - 4 % [facility] Basophils Percent Auto 0.6 0 - 2 % [facility] NRBC Pct Auto 0.0 0.0 - 0.2 /100WBC [facility] Neutrophils Absolute Auto 4.7 2.0 - 8.3 x10*3/uL [facility] Imm Gran Abs Auto 0.03 0.00 - 0.03 X10*3/uL [facility] Lymphocytes Absolute Auto 1.1(L) 1.2 - 4.9 X10*3/uL [facility] Monocytes Absolute Auto 0.6 0.1 - 1.2 X10*3/uL [facility] Eosinophils Absolute Auto 0.1 0.0 - 0.4 X10*3/uL [facility] Basophils Absolute Auto 0.0 0.0 - 0.2 X10*3/uL [facility] NRBC Abs Auto 0.000 0.0 - 0.012 X10*3/uL [facility] Blood Venous blood specimen / Unknown 07/15/2025 11:13 AM EDT 07/15/2025 1:08 PM EDT us Winnie Sow MD LAB BLOOD ORDERABLES Final Result [facility] [address] [place] [phone] * Hepatitis C Antibody with Reflex to HCV, RNA, Quantitative, Real-Time PCR (07/15/2025 11:13 AM EDT) Hepatitis C Antibody Nonreactive Nonreactive [facility] Comment:Antibodies to HCV no t detected; does not exclude early acuteHCV infection. Blood Venous blood specimen / Unknown 07/15/2025 11:13 AM EDT 07/15/2025 1:08 PM EDT Winnie Sow MD LAB BLOOD ORDERABLES Final Result Performing Organization Address [facility] de Phone Number [facility] [address] [place] [address] [phone] * Herpes Simplex Virus 1 and 2 (IgG), Type-Specific Antibodies (07/15/2025 11:13 AM EDT) Herpes Simplex Type 1 IgG <0.90 index [facility] Herpes Simplex Type 2 IgG <0.90 index [facility] Comment:Index Interpretation ----- <0.90 Negative 0.90-1.09 [...] immunocompromised patients,or screening.For additional information, please refer [email or web address]/faq/[email or web address](This link is being provided for informational/educational purposes only.)THIS TEST WAS PERFORMED AT:[employer] [place] [address] [id number] EAST MD 07/15/2025 11:1 3 AM EDT 07/15/2025 1:08 PM EDT Winnie Sow MD LAB BLOOD ORDERABLES Final Result Performing Organization Address [facility]/ZIP Co de Phone Number [facility] [address] [place] [address] [phone] * HIV-1/2 Antigen and Antibodies, Fourth Generation, with Reflexes (07/15/2025 11:13 AM EDT) HIV AB/AG Nonreactive Nonreactive [facility] Comment:HIV-1 p24 Ag and/or HIV-1/HIV-2 Ab not detected.A test result that is nonreactive does not exclude thepossibility of exposure to or infection with HIV-1 and/orHIV-2. Nonreactive results in this assay for individualswith prior exposure to HIV-1 and/or HIV-2 may be due toantigen and antibody levels that are below the limit ofdetection of this assay.The [facility] HIV Ag/Ab Combo assay result andsupplemental assay results should be interpreted inconjunction with the patient's clinical presentation,history and other laboratory results. If the results areinconsistent with clinical evidence, additional testing issuggested to confirm the result. Blood Venous blood specimen / Unknown 07/15/2025 11:13 AM EDT 07/15/2025 1:08 PM EDT Winnie Sow MD LAB BLOOD ORDERABLES Final Result Performing Organization Address [facility] Co de Phone Number [facility] [address] [place] [phone] [phone] * (ABNORMAL) Hepatic Function Panel (07/15/2025 11:13 AM EDT) Bilirubin, Total 0.4 0.0 - 1.0 mg/dL [facility] Bilirubin, Direct 0.2 0.0 - 0.5 mg/dL [facility] Aspartate Amino Transferase 23 5 - 31 U/L [facility] Alanine Aminotransferase 14 0 - 31 U/L [facility] Total Protein 8.5(H) 6.5 - 8.0 g/dL [facility] Albumin Level 4.6 3.5 - 5.0 g/dL [facility] Alkaline Phosphatase 61 39 - 117 U/L [facility] Blood Venous blood specimen / Unknown 07/15/2025 11:13 AM EDT 07/15/2025 1:08 PM EDT Winnie Sow MD LAB BLOOD ORDERABLES Final Result Performing Organization Address [facility] de Phone Number [facility] [address] [place] [address] [phone] * (ABNORMAL) Basic Metabolic Panel (07/15/2025 11:13 AM EDT) Pathologist [facility] Sodium 139 135 - 145 mmol/L [facility] Potassium 3.7 3.3 - 5.1 mmol/L [facility] Chloride 103 96 - 108 mmol/L [facility] Carbon Dioxide 24 22 - 29 mmol/L [facility] Anion Gap 16 12 - 20 [facility] Urea Nitrogen (BUN) 6(L) 9 - 16 mg/dL [facility] Creatinine, Serum 0.72 0.5 - 1.4 mg/dL [facility] Estimated Glomerular Filt Rate >60 [facility] Comment:Chronic Kidney Disea se: Estimated GFR < 60 mL/min/1.54z5Gscama Kidney Disease: Estimated GFR < 15 mL/min/1.73m2 Glucose 102 60 - 115 mg/dL [facility] Calcium 9.3 8.4 - 10.2 mg/dL [facility] Blood Venous blood specimen / Unknown 07/15/2025 11:13 AM EDT 07/15/2025 1:08 PM EDT Winnie Sow MD LAB BLOOD ORDERABLES Final Result Performing Organization Address [facility] de Phone Number [facility] [address] [place] [phone] * (ABNORMAL) Bacterial Vaginosis (07/15/2025 10:40 AM EDT) TRICHOMONAS VAGINALIS DETECTION BY PCR NOT DETECTED Not Detect [facility] BACTERIAL VAGINOSIS DETECTION BY PCR POSITIVE(A) Negative [facility] Comment:The BV organism targ ets of [...] DETECTION BY PCR NOT DETECTED Not Detect [facility] Dana glab krusei PCR NOT DETECTED Not Detect [facility] 07/15/2025 10:4 0 AM EDT 07/15/2025 6:13 PM EDT Winnie Sow MD LAB MICROBIOLOGY - GENERAL ORDERABLES Final Result [facility] [address] [place] [phone] * Chlamydia/N. Gonorrhoeae RNA, TMA, Vagina (07/15/2025 10:40 AM EDT) Pathologist [facility] CT PCR NOT DETECTED Not Detect. [facility] Comment:A not detected test result does [...] psychologicalconsequences. NG PCR NOT DETECTED Not Detect. [facility] Comment:A not detected test result does [...] LAB MICROBIOLOGY - GENERAL ORDERABLES Final Result [facility] [address] [place] [phone] * POCT , urine manually resulted (07/15/2025 10:05 AM EDT) Preg Test, Ur Negative Negative, Indeterminate, None Detected, Invalid, Specimen unsatisfactory for evaluation, Weakly Positive, 2+ QC Media Lot # [id number] Lot# Expiration Date 113, Urine 07/15/2025 10:0 5 AM EDT Winnie Sow MD POINT OF CARE TEST ENTER/E DIT ORDERABLES Final Result from Last [address] [place] [address] [place] [address] C3 Care Teams Instructional Developer Relationship Specialty Start Date End Date Schley, MD Winnie [address] [place] [address] PCP - General Family Medicine 07/15/25
--- OUTSIDE RECORDS SUMMARY | 2025-07-19 14:08 | XMS_ITS | Encounter Summary ---
Author Organization [employer] Address [address] [place] [address] [address] [place] [address] Care Team Providers Care Sales Office Coordinator Name Role Phone Winnie Sow MD Primary Care Provider +1- [phone] Encounter Details Date Type Department Care Team (Latest Contact Info) Description 07/19/2025 Travel Social History Tobacco Use Types Packs/Day Years Used Date Smoking Tobacco: Never Passive Smoke Exposure: Never Smokeless Tobacco: Never Alcohol Use Standard [...] Description 08/15/2025 9:30 AM EDT Office Visit [facility] [address] [place] [address] Winnie Sow MD [address] [place] [address] documented as of this encounter Visit Diagnoses Not on filedocumented in this encounter Care Teams Sales Office Coordinator Relationship Specialty Start Date End Date Winnie Sow MD [address] [place] [address] PCP - General Family Medicine 07/15/25 documented as of this encounter
--- OUTSIDE RECORDS SUMMARY | 2025-07-19 14:08 | XMS_ITS | Encounter Summary ---
Author Organization [employer] Address [address] [place] [address] [address] [place] [address] Care Team Providers Care Metal Tube Cutter Name Role Phone Winnie Sow MD Primary Care Provider +1- [phone] Encounter Details Date Type Department Care Team [...] Description 08/15/2025 9:30 AM EDT Office Visit [facility] [address] [place] [address] Winnie Sow MD [address] [place] [address] documented as of this encounter Visit Diagnoses Not on filedocumented in this encounter Care Teams Metal Tube Cutter Relationship Specialty Start Date End Date Winnie Sow MD [address] [place] [address] PCP - General Family Medicine 07/15/25 documented as of this encounter
--- OUTSIDE RECORDS SUMMARY | 2025-07-19 14:08 | XMS_ITS | Encounter Summary ---
Author Organization [employer] Address [address] [place] [address] [address] [place] [address] Care Team Providers Care Source Water Protection Specialist Name Role Phone Winnie Sow MD Primary Care Provider +1- [phone] Encounter Details Date Type Department Care Team (Latest Contact Info) Description 07/18/2025 Travel Social History Tobacco Use Types Packs/Day [...] Office Visit [facility] [address] [place] [address] Winnie Sow MD [address] [place] [address] documented as of this encounter Visit Diagnoses Not on filedocumented in this encounter Care Teams Source Water Protection Specialist Relationship Specialty Start Date End Date Winnie Sow MD [address] [place] [address] PCP - General Family Medicine 07/15/25 documented as of this encounter
== END 2025-07-19 14:06 | disposition home or self-care (01) ==
LOC: HO.HHCLNP 14:05
PROVIDERS: Visit Provider Family Medicine
DX: N94.9 Unspecified condition associated with female genital organs and menstrual cycle (principal)
CPT/HCPCS: 87086

== ENCOUNTER 2025-08-15 | Outpatient (REF) | payer MEDICAID, SELFPAY ==
[2025-08-20 03:09] LABS: C. trachomatis RNA TMA NOT DETECTED (NOT DETECTED); N. gonorrhoeae RNA TMA NOT DETECTED (NOT DETECTED); Trichomonas (NAAT) NOT DETECTED (NOT DETECTED)
--- OUTSIDE RECORDS SUMMARY | 2025-09-01 10:51 | XMS_ITS | Clinical Summary ---
Author Organization [employer] Address [address] [place] [address] 7 [place] [address] Care Team Providers Care Order Editor Name Role Phone Winnie Sow MD Primary Care Provider [phone]- [phone] Allergies Active Allergy Reactions Criticality Noted Date Comments Valacyclovir Other 07/23/2025 Stiffness of body Medications No known medications Active Problems Problem Noted Date Diagnosed Date Encounter for screening for malignant neoplasm o f breast 08/15/2025 Overview (08/15/2025): Mammo ordered 07/15/25 -given phone # 08/15/25 Assessment & Plan (08/15/2025 10:54 AM EDT): Mammo ordered 07/15/25 -given phone # 08/15/25 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 Her HSV Ab came back negative, pt contacted the clinic due to adverse effects of body stiffness while on Valacyclovir. She was advised to discontinue (off for >36 hours) and now feeling better. HSV Culturecame back positive for HSV Type 2 07/22/25. Rx for Acyclovir 200mg 5x/day for 10-day course sent, but discussed patient will hold off on starting the medication unless symptoms worsen (reported getting better without new eruptions). 08/15/25 symptoms resolved earlier this month. No more recurrence. Assessment & Plan (08/15/2025 10:54 AM EDT): 07/15/25 treated with Valacyclovir for presumptive HSV (due to erythematous rash on vaginal introitus). Her HSV Ab came back negative, pt contacted the clinic due to adverse effects of body stiffness while on Valacyclovir. She was advised to discontinue (off for >36 hours) and now feeling better. HSV Culturecame back positive for HSV Type 2 07/22/25. Rx for Acyclovir 200mg 5x/day for 10-day course sent, but discussed patient will hold off on starting the medication unless symptoms worsen (reported getting better without new eruptions). 08/15/25 symptoms resolved earlier this month. No more recurrence. Family planning 08/15/2025 Overview (08/15/2025): -pt does not desire within the next 12 months -discussed efficacies, benefits and risks of available contraceptive means available including IUD, subdermal implantable device, injection, combination oral contraceptives, patch, vaginal ring and condoms. -patient declined control 08/15/25 reports trying to abstain from sexual intercourse currently. -indications for Prep disused, -condoms offered -Plan B accepted -Urine HCG 07/15/25 negative Assessment & Plan (08/15/2025 10:54 AM EDT): -pt does not desire within the next 12 months -discussed efficacies, benefits and risks of available contraceptive means available including IUD, subdermal implantable device, injection, combination oral contraceptives, patch, vaginal ring and condoms. -patient declined control 08/15/25 reports trying to abstain from sexual intercourse currently. -indications for Prep disused, -condoms offered -Plan B accepted -Urine HCG 07/15/25 negative Pap smear for cervical cancer screening 08/15/20 Overview (08/22/2025): 2021 ASCUS, HPV negative. Repeat in 3 years. Pap with HPV testing done 08/15/25 ASCUS, HPV negative. Per ACCP guidelines, repeat cotesting 1 year Assessment & Plan (08/15/2025 10:54 AM EDT): Pap with HPV testing done 08/15/25 STI testing offered, PreP offered Preventative care and harm reduction discussed Orders: Pap Smear HPV High Risk with Reflex to Subtypes Grief reaction 08/15/2025 Overview (08/15/2025): Father last year. Reported feeling guilty about recent HSV infection. -recommended EMDR therapy 08/15/25 Assessment & Plan (08/15/2025 10:54 AM EDT): Father last year. Reported feeling guilty about recent HSV infection. -recommended EMDR therapy 08/15/25 Other specified health status 07/15/2025 Overview (08/15/2025): -next comprehensive annual evaluation due after 08/15/26 -eye care facilitated by -[facility]william care proxy given and filed 08/15/25 Assessment & Plan (08/15/2025 10:54 AM EDT): -next comprehensive annual evaluation due after 08/15/26 -eye care facilitated by -dental home is [facility] -william care proxy given and filed 08/15/25 Assessment & Plan (07/15/2025 10:56 AM EDT): Encounters Date Type Department Care Team Description 08/22/2025 Results Follow-Up [address] [address] Winnie Sow MD Pap Smear, STI testing add on (NG, CT, Trich) 08/15/2025 9:30 AM EDT Office Visit [address] [address] Winnie Sow MD Pap smear for cervical cancer screening (Primary Dx); Family planning; 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; Screening cholesterol level; Dietary counseling; Exercise counseling; Encounter for screening mammogram for malignant neoplasm of breast; Routine screening for STI (sexually transmitted infection); Encounter for immunization; Other specified health status; Grief reaction 08/15/2025 Travel 08/08/2025 Patient Outreach [address] [place] [address] Winnie Sow MD Pre-visit Planning (SDOH screening negative and Tobacco screening negative) 07/23/2025 [facility] [address] [address] Winnie Sow MD 07/22/2025 7:40 PM EDT Telemedicine [address] [address] Juliocesar Barrientos MD Herpes simplex type 2 infection (Primary Dx) 07/19/2025 9:00 AM EDT Office Visit [address] [address] Juliocesar Barrientos MD Bacterial vaginosis 07/19/2025 Travel 07/18/[address] [address] Elicia Samayoa DO 07/18/2025 Travel 07/16/2025 Results Follow-Up [facility] [address] [place] [address] Winnie Sow MD Bacterial Vaginosis 07/15/2025 9:40 AM EDT Office Visit [address] [address] Winnie Sow MD Acute vaginitis (Primary Dx); Family planning; Routine screening for STI (sexually transmitted infection); Diabetes mellitus screening; Screening, anemia, deficiency, iron; Candidiasis; Encounter for screening for malignant neoplasm of breast, unspecified screening modality; Other specified health status 07/15/2025 Orders Only [facility] [address] [place] [address] Winnie Sow MD 07/15/2025 Travel from Last 3 Months Immunizations Immunization Administration Dates Next Due DTaP 06/04/1990, 6,06/04/1985,03/11,01/14/1985 HPV, Quadrivalent 09/14/2007,04/23/2007,02/20/20 07 Hep B, Adolescent or Pediatric 12/21/1998,1997,06/20/1998 Hib (HbOC) 05/21/1987,10/28/1986 IPV 06/04/1990, 6,03/11/1985,01/14 Influenza injectable quadriv alent IIV4 with preservative 08/25/2020 Influenza injectable quadriv alent preservative free 09/22/2021,09/11/2020 MMR 06/02/1995,02/21/1986 Meningococcal MCV4O 06/28/2013 TD (adult), 2 Lf tetanus tox oid, preservative free, adsorbed 06/20/1998 Tdap 08/15/2025,01/18/2013,11/20/2008 Family History Medical History Relation Name Comments [...] = 0.6 oz pur e alcohol) recreational Depression Answer Date Recorded Patient Health Questionnaire-9 Score 3 08/15/2025 Patient Health Questionnaire-9 Score 3 08/15/2025 Last PHQ-9: Questionnaire Data Not on file 0 08/15/2025 Housing Stability Answer Date Recorded What is your housing situation today? I have ashelykodak marroquin 08/08/[address] you li ve. Do you have problems with any of the following? None of the above 08/08/2025 Food Insecurity Answer Date Recorded Within the past 12 months, y ou worried that your food would run out before you got money to buy more: Never True 08/08/2025 Within the past 12 months,th e food you bought just didn't last and you didn't have enough money to get more: Never True Transportation Answer Date Recorded In the past 12 months, has l ack of transportation kept you from medical appts, meetings, work or from getting things needed for daily living? No 08/08/2025 Utilities Answer Date Recorded In the past 12 months, has t he electric, gas, oil or water company threatened to shut off services in your home? No 08/08/2025 Depression Answer Date Recorded Patient Health Questionnaire-2 Score 2 08/15/2025 Internet Access Answer Date Recorded Internet Access Q1 No 08/15/2025 Internet Access Q2 I do not want or need it 07/22 Comments Unknown Intention Date Recorded No desire to become (finding) 0 07/15/2025 Sex and Gender Information Value Date Recorded Sex Assigned at Female 10/30/2024 8:30 AM EST Legal Sex Female 8:29 AM EST Gender Identity Female 10/30/2024 8:30 AM EST Sexual Orientation Straight 10/30/2024 8: 30 AM EST Last Filed Vital Signs Vital Sign Reading Time Taken Comments Blood Pressure 122/74 08/15/2025 9:17 AM EDT Pulse 96 08/15/2025 9:17 AM EDT Temperature 37.2 C (98.9 F) 08/15/2025 9:17 AM EDT Respiratory Rate 20 08/15/2025 9:17 AM EDT Oxygen Saturation 97% 08/15/2025 9:17 AM EDT Inhaled Oxygen Concentration - - Weight 66 kg (145 lb 9.6 oz) 08/15/2025 9:17 AM EDT Height 157.5 cm (5' 2 ) 08/15/2025 9:17 AM EDT Body Mass Index 26.63 08/15/2025 9:17 AM EDT Plan of Treatment Health Maintenance Due Date Last Done Comments Mammogram 2024 COVID-19 Vaccine ( season) 2025 07/13/2021, 06/22/2021 Influenza Vaccine (#1) 2025 , 09/11/2020, 08/25/2020 Family Planning (PISQ) 07/15/2026 07/15/2025 Disability Screening 07/18/2026 07/18/2025 Alcohol/Substance Use Screening 08/15/2026 08/15/2025 Cervical Cancer Screening 08/15/2026 Depression Screening 08/15/2026 08/15/2025, 08/15/20 HPV/Cotest 08/15/2026 08/15/2025 Pap Smear 08/15/2026 08/15/2025 SDOH Screening 08/15/2026 08/15/2025 Tobacco Screening 08/15/2026 08/15/2025 Zoster Vaccines (1 of 2) 2034 DTaP/Tdap/Td Vaccines (9 - Td or Tdap) 08/15/2035 08/15/2025, 01/18/2013, 11/20/2008, Additional history exists RSV Patients and Patients Aged 60 years [...] Procedure Name Priority Date/Time Associated Diagnosis Comments CHLAMYDIA/N. GONORRHOEAE AND T. VAGINALIS RNA, QUAL,TMA Routine 08/15/2025 6:54 AM EDT Routine screening for STI (sexually transmitted infection) HPV DNA, LOW/HIGH RISK Routine 08/15/2025 6:47 AM EDT Pap smear for cervical cancer screening PAP SMEAR Routine 08/15/2025 Pap smear for cervical cancer screening CULTURE, URINE, ROUTINE Routine 07/19/2025 10:05 AM EDT POCT URINALYSIS DIPSTICK Routine 07/19/2025 9:26 AM [...] Routine screening for STI (sexually transmitted infection) HERPES CULTURE WITH REFLEX TYPING Routine 07/15/2025 10:40 AM EDT BACTERIAL VAGINOSIS PANEL Routine 07/15/2025 10:40 AM EDT CHLAMYDIA/N. GONORRHOEAE RNA, TMA, UROGENITAL Routine 07/15/2025 10:40 AM EDT Acute vaginitis POCT URINALYSIS DIPSTICK Routine 07/15/2025 10:09 AM EDT Family planning POCT , URINE Routine 07/15/2025 10:05 AM EDT Family planning from Last 3 Months Results * STI testing add on (NG, CT, Trich) (08/15/2025 6:54 AM EDT) Trichomonas (NAAT) NOT DETECTED NOT DETECTED [facility] Comment:The analytical perfo rmance characteristics of thisassay have been determined by [employer]. Themodifications have not been cleared or approved bythe FDA. This assay has been validated pursuant to theIA regulations and is used for clinical purposes.For additional information, please refer tohttp://education.[employer]/faq/Trichomonastma(This link is being provided for information/educational purposes only.)THIS TEST WAS PERFORMED AT:[facility] [place] [id number] EAST MD CTNG Ref Lab NOT DETECTED NOT DETECTED [facility] NG Ref Lab NOT DETECTED NOT DETECTED [facility] ThinPrep vial Cervix uteri structure / Unknown 08/15/2025 6:54 AM EDT 08/18/2025 6:54 AM EDT Narrative [facility] - 08/20/2025 3:09 AM EDT Collection Date: [id number] by: MONICA Boss: Cervix us Winnie Sow MD LAB CYTOLOGY ORDERABLES Fi nal Result [facility] [address] [place] [phone] * HPV High Risk with Reflex to Subtypes (08/15/2025 6:47 AM EDT) HPV High Risk Negative Negative [facility] HPV Genotype 16 Negative Negative [facility] HPV Genotype 18 Negative Negative [facility] Comment:HPV testing performe d at [facility] (CLIA#[id number]), [address] [place] [address].Testing for HPV was performed using the July STEFFANIE 6800system. The presence of HPV in the female genital tract isassociated with a number of diseases, including cervicalcarcinoma. The HPV DNA high risk pool tests for HPV 31, 33,35, 39, 45, 51, 52, 56, 58, 59, 66 and 68. The testing forHPV 16 and 18 genotypes has also been performed. A positiveresult indicates detection of nucleic acid sequences fromone or more subtypes, whereas a negative result indicatessuch sequences were not detected. Pap Vial 08/15/2025 6:47 AM EDT 08/18/2025 6:52 AM EDT Winnie Sow MD LAB BLOOD ORDERABLES Final Result [facility] [address] [place] [phone] * Pap Smear (08/15/2025) Swab 08/15/2025 08/18/2025 6:4 7 AM EDT Narrative [facility] - 08/21/2025 4:50 PM EDT ----- ------- Name: OhElicia Age/Sex: 39/F : 1985 Unit#: [id number] Attend Dr: Re08/15/25 Status: PRE NADJA Location: [facility] Disch: ----- ------- SPEC : [id number] RECD: 08/18/25 STATUS: PATRIC CASTRO NUM: [id number] RANDAL: 08/15/25- SUBM DR: Winnie Sow MD ENTERED: 08/18/2549 SP TYPE: Pap Smr OTHR DR: ORDERED: Pap Smear, PAP path review Interpretation General Category: Epithelial cell abnormality. Adequacy: Endocervical component present. Interpretation: Atypical squamous cells of undetermined significance. HPV High Risk: Negative HPV Genotyping 16: Negative HPV Genotyping 18: Negative Clinical Information LMP: Previous PAP test: Abnormal, HPV negative 11/15/22 Other surgery: Other history: Material Received ThinPrep-Cervical ----- ------- Signed (signature on file) Idalia Verona 08/21/25 1650 ----- ------- END OF REPORT Winnie Sow MD LAB CYTOLOGY ORDERABLES nal Result [facility] [address] [place] [phone] * Culture, Urine, Routine (07/19/2025 10:05 AM EDT) Urine Urine specimen obtained by clean catch procedure / Unknown 07/19/2025 10:05 AM EDT 07/19/2025 2:06 PM EDT Comment:[facility] Narrative [facility] - 07/21/2025 9:53 AM EDT Urine Culture No growth. Specimen Source: Urine clean catch Juliocesar Barrientos MD LAB MICROBIOLOGY - GENERAL ORDER KAREN Final Result Performing Organization Address [facility] Co de Phone Number [facility] [address] [place] [phone] * (ABNORMAL) POCT Urinalysis (07/19/2025 9:26 AM EDT) Only the most recent of2 resultswithin the time period is included. Pathologist [facility] Color, UA Yellow Clarity, UA Cloudy Glucose, UA Negative Bilirubin, UA Trace Comment:Small Ketones, UA Negative Spec Grav, UA 1.025 Blood, UA Positive(A) Negative, None Detected Comment:Large pH, UA 6.5 Protein, UA Trace Comment:30mg/dL Urobilinogen, UA 1.0 Leukocytes, UA Negative Negative, Rare, Trace Nitrite, UA Negative Negative, None Detected Appearance, UA yellow QC Media Lot # [id number] Lot# Expiration Date [id number] Urine 07/19/2025 9:26 AM EDT Juliocesar Barrientos MD POINT OF CARE TEST ENTER/EDIT OR DERABLES Final Result * Syphilis Screen (07/15/2025 11:13 AM EDT) [facility] Syphilis Screen Nonreactive Nonreactive [facility] Blood Venous blood specimen / Unknown 07/15/2025 11:13 AM EDT 07/15/2025 1:08 PM EDT Winnie Sow MD LAB BLOOD ORDERABLES Final Result Performing Organization Address City/[facility]/ZIP Co de Phone Number [facility] [address] [place] [phone] * (ABNORMAL) CBC auto differential (07/15/2025 11:13 AM EDT) [facility] White Blood Count 6.4 4.8 - 10.8 [...] BLOOD ORDERABLES Final Result Performing Organization Address City/[facility]/ZIP Co de Phone Number [facility] [address] [place] [phone] * Hepatitis C Antibody with Reflex [...] BLOOD ORDERABLES Final Result Performing Organization Address City/[facility]/ZIP Co de Phone Number [facility] [address] [place] [phone] * Herpes Simplex Virus 1 and 2 (IgG), Type-Specific Antibodies (07/15/2025 11:13 AM EDT) Herpes Simplex Type 1 IgG <0.90 index [facility] Herpes Simplex Type 2 IgG <0.90 index [facility] Comment:Index Interpretation ----- <0.90 Negative 0.90-1.09 [...] immunocompromised patients,or screening.For additional information, please refer tohttp://education.[employer]Malesbanget/faq/PVR409(This link is being provided for informational/educational purposes only.)THIS TEST WAS PERFORMED AT:[facility] [place] [phone] EAST MD 07/15/2025 11:1 3 AM EDT 07/15/2025 1:08 PM EDT Winnie Sow MD LAB BLOOD ORDERABLES Final Result Performing Organization Address City/[facility]/ZIP Co de Phone Number [facility] [address] [place] [phone] * HIV-1/2 Antigen and Antibodies, Fourth Generation, with Reflexes (07/15/2025 11:13 AM EDT) HIV AB/AG Nonreactive Nonreactive [facility] Comment:HIV-1 p24 Ag and/or HIV-1/HIV-2 Ab not detected.A test result that is nonreactive does not exclude thepossibility of exposure to or infection with HIV-1 and/orHIV-2. Nonreactive results in this assay for individualswith prior exposure to HIV-1 and/or HIV-2 may be due toantigen and antibody levels that are below the limit ofdetection of this assay.The [employer] HIV Ag/Ab Combo assay result andsupplemental assay results should be interpreted inconjunction with the patient's clinical presentation,history and other laboratory results. If the results areinconsistent with clinical evidence, additional testing issuggested to confirm the result. Blood Venous blood specimen / Unknown 07/15/2025 11:13 AM EDT 07/15/2025 1:08 PM EDT Winnie Sow MD LAB BLOOD ORDERABLES Final Result Performing Organization Address City/[facility]/ZIP Co de Phone Number [facility] [address] [place] [phone] * (ABNORMAL) Hepatic Function Panel (07/15/2025 [...] Final Result [facility] [address] [place] [address] [phone] * (ABNORMAL) Basic Metabolic Panel (07/15/2025 11:13 AM EDT) [facility] Sodium 139 135 - 145 mmol/L HOSPITAL [...] Kidney Disea se: Estimated GFR < 60 mL/min/1.61u3Paywtn Kidney Disease: Estimated GFR < 15 mL/min/1.73m2 Glucose 102 60 - 115 mg/dL [facility] Calcium 9.3 8.4 - 10.2 mg/dL [facility] Blood Venous blood specimen / Unknown 07/15/2025 11:13 AM EDT 07/15/2025 1:08 PM EDT Winnie Sow MD LAB BLOOD ORDERABLES Final Result Performing Organization Address [facility] Co de Phone Number [facility] [address] [place] [phone] * (ABNORMAL) Bacterial Vaginosis (07/15/2025 10:40 AM EDT) TRICHOMONAS VAGINALIS DETECTION BY PCR NOT DETECTED Not Detect [facility] BACTERIAL VAGINOSIS DETECTION BY PCR POSITIVE(A) Negative [facility] Comment:The BV organism targ ets of [...] DETECTION BY PCR NOT DETECTED Not Detect [facility] Dana glab krusei PCR NOT DETECTED Not Detect [facility] 07/15/2025 10:4 0 AM EDT 07/15/2025 6:13 PM EDT Winnie Sow MD LAB MICROBIOLOGY - GENERAL ORDERABLES Final Result Performing Organization Address [facility] Co de Phone Number [facility] [address] [place] [phone] * (ABNORMAL) Herpes Simplex Virus Culture with Reflex Typing (07/15/2025 10:40 AM EDT) Pathologist [facility] HSV Culture/Type SEE NOTE(A) [facility] Comment:HERPES SIMPLEX VIRUS CULTURE W/RFL TO TYPING Micro Number: [id number] Test Status: Final Specimen Source: Vagina Specimen Quality: Adequate HSV Culture: Isolated HSV TYPE 2: Isolated HSV TYPE 1: The incidence of HSV 1 infection in the presence of HSV 2 (dual infection) is extremely rare. Therefore, testing for HSV 1 was not performed.THIS TEST WAS PERFORMED AT:[facility] [id number] MERATI,MD 07/15/2025 10:4 0 AM EDT 07/15/2025 6:13 PM EDT Narrative [facility] - 07/22/2025 7:43 AM EDT VAGINA us Winnie Sow MD LAB MICROBIOLOGY - GENERAL ORDERABLES Final Result [facility] [address] [place] [phone] * Chlamydia/N. Gonorrhoeae RNA, TMA, Vagina [...] Final Result [facility] [address] [place] [phone] * POCT , urine manually resulted (07/15/2025 10:05 AM EDT) Preg Test, Ur Negative Negative, Indeterminate, None Detected, Invalid, Specimen unsatisfactory for evaluation, Weakly Positive, 2+ QC Media Lot # [id number] Lot# Expiration Date [id number] Urine 07/15/2025 10:0 5 AM EDT Winnie Sow MD POINT OF CARE TEST ENTER/E DIT ORDERABLES Final Result from Last 3 Months Insurance C3 Advance Directives Documents on File Type Date Recorded Patient Pattern And Chain Maker Expl anation Advance Directives and Living Will 08/15/2025 Health Care Proxy 08/15/25 Care Teams Order Editor Relationship Specialty Start Date End Date Harper, MD Winnie [address] [place] [phone] PCP - General Family Medicine 07/15/25
--- OUTSIDE RECORDS SUMMARY | 2025-09-01 10:51 | XMS_ITS | Encounter Summary ---
Author Organization [employer] Address [address] [place] [address] [address] [place] [address] Care Team Providers Care Optoelectronic Technician Name Role Phone Winnie Sow MD Primary Care Provider +1- [phone] Encounter Details Date Type Department Care Team ([facility] st Contact Info) Description 07/16/2025 Results Follow-Up [facility] [address] [place] [phone] Winnie Sow MD [address] [place] [address] Bacterial Vaginosis Social History Tobacco Use Types [...] as of this encounter Plan of Treatment Not on file documented as of this encounter Visit Diagnoses Not on filedocumented in this encounter Care Teams Optoelectronic Technician Relationship Specialty Start Date End Date Winnie Sow MD [address] [place] [address] PCP - General Family Medicine 07/15/25 documented as of this encounter
--- OUTSIDE RECORDS SUMMARY | 2025-09-01 10:51 | XMS_ITS | Encounter Summary ---
Author Organization [employer] Address [address] [facility] [address] [place] [address] Care Team Providers Care [employer] Vice Principal Name Role Phone Winnie Sow MD Primary Care Provider [phone]- [phone] Encounter Details Date Type Department Care Team (Late st Contact Info) Description 07/23/2025 Orders Only [facility] [address] [place] [address] [phone] Winnie Sow MD [address] [place] [phone] Social History Tobacco Use Types Packs/Day Years [...] on filedocumented in this encounter Care Teams High School Vice Principal Relationship Specialty Start Date End Date Winnie Sow MD [address] [place] [phone] PCP - General Family Medicine 07/15/25 documented as of this encounter
== END 2025-08-15 00:01 | disposition home or self-care (01) ==
LOC: HO.LNP
PROVIDERS: Visit Provider Family Medicine
DX: Z12.4 Encounter for screening for malignant neoplasm of cervix (principal); Z11.3 Encounter for screening for infections with a predominantly sexual mode of transmission; Z11.8 Encounter for screening for other infectious and parasitic diseases; Z11.51 Encounter for screening for human papillomavirus (HPV)
CPT/HCPCS: 87491; 87591; 87626; 87661; 88175